=== PATIENT | female | born 1975 | race Caucasian/White ===

== ENCOUNTER → 2024-09-18 12:38 | Outpatient (REF) | payer OTHER, SELFPAY | LOC: WDC 12:38 | PROVIDERS: ATTENDING PHYSICIAN Obstetrics & Gynecology Gynecology; FAMILY PHYSICIAN Nurse Practitioner Family | DX: Z12.31 Encounter for screening mammogram for malignant neoplasm of breast (principal); Z12.39 Encounter for other screening for malignant neoplasm of breast | CPT/HCPCS: 77063; 77067 ==

== ENCOUNTER 2024-10-16 21:38 | Inpatient (IN) | payer OTHER, SELFPAY ==
[2024-10-16 15:47] VITALS: BP 144/93
--- NOTE | 2024-10-16 16:07 | ED.GENMED ---
History of Present Illness
<Araceli Jimenez PA-C - Last Filed: 10/17/24 06:56>
General
Chief Complaint: Chest Pain
Source: patient
Exam Limitations: none
Time Seen by Provider: 10/16/24 15:52
History of Present Illness
History of Present Illness:
49yoF with no significant past medical history presenting for evaluation of flank pain. Symptoms initially started 5 days ago with intense pain in her left shoulder. She was seen by her PCP 3 days ago and had an EKG done in the office. She was
told that she had a 'silent heart attack' and was referred to cardiology and an echocardiogram was ordered. Her shoulder pain resolved. She had some jaw pain with a headache after her appt 3 days ago. Two days ago, she started with pain in her
RLQ. Pain has been gradually starting to migrate to the R flank region. Pain is worse with movement and breathing. She was prescribed a muscle relaxant by her PCP but this has not helped. She denies any chest pain, nausea, vomiting, urinary
symptoms. Her only current medication is an oral contraceptive.
Phy Exam
<Araceli Jimenez PA-C - Last Filed: 10/17/24 06:56>
Physical Exam
Physical Exam:
Appears uncomfortable, non-toxic
General Physical Exam
General Presentation: well appearing
General Skin: warm and dry
General Habitus: normal
General Mental: alert
ENT Exam
ENT Exam: normocephalic
Cardiovascular Exam
Cardiovascular Exam: regular rate/rhythm and normal peripheral pulses (2+ radial and DP pulses bilaterally)
Pulmonary Exam
Pulmonary Exam: lungs clear, no respiratory distress, no rales, no crackles, no rhonchi and no wheezing
Gastrointestinal Exam
Gastrointestinal Exam: soft, non distended and other (+Tenderness in RLQ. Abdomen soft, non-distended. No CVA tenderness. )
Neurological Exam
Neurological Exam: alert
Sage Coma Scale
Eye Opening: Spontaneous
Verbal Response: Oriented
Motor Response: Obeys Commands
GCS Total Score: 15
Skin Exam
Skin Exam: normal color and warm/dry
Psychiatric Exam
Psychiatric Exam: normal mood/affect
<Luther Gil PA-C - Last Filed: 10/16/24 20:06>
Sage Coma Scale
GCS Total Score: 15
Scores
<Araceli Jimenez PA-C - Last Filed: 10/17/24 06:56>
Heart Score for Chest Pain Patients
Heart Score for Chest Pain Patients: 1
Heart Score Risk: 2.5% MACE over next 6 weeks
<Luther Gil PA-C - Last Filed: 10/16/24 20:06>
Heart Score for Chest Pain Patients
STEMI patient?: No
History: Slightly or Non-Suspicious
ECG: Normal
Age: >45 - <65 years
Risk Factors: No Risk Factors
Troponin: </= Normal Limit
Heart Score for Chest Pain Patients: 1
Heart Score Risk: 2.5% MACE over next 6 weeks
Course
<Araceli Jimenez PA-C - Last Filed: 10/17/24 06:56>
Orders/Labs/Results
Orders:
Orders
10/16/24 Dinner
Regular
At Your Request: Full Participation
10/16/24 15:51
Electrocardiogram (*1) Urgent
Reason for Study: Chest Pain
EKG- Treatment ONCE
10/16/24 16:05
Cardiac Monitoring- Treatment ONCE
0.9% Sodium Chloride 1000 ml [Nss] 1,000 ml IV BOLUS
Ketorolac [Toradol] 15 mg IV NOW STA
10/16/24 16:06
Test Result ONCE
10/16/24 16:28
Complete Blood Count/With Diff Urgent
10/16/24 16:58
Comprehensive Metabolic Panel Urgent
D-Dimer Urgent
HCG, Serum Qualitative Screen Urgent
Comment: ADD ON
Lipase Urgent
Troponin I Urgent
10/16/24 17:32
CT Pe/abd/pel W Urgent
Comment:
Reason For Exam: R flank pain, RLQ pain, elevated D-dimer
10/16/24 18:10
CT Head W/o Iv Contrast Urgent
Comment:
Reason For Exam: recurrent headaches
Ketorolac [Toradol] 15 mg IV NOW STA
10/16/24 18:30
Urinalysis Reflex To Culture Urgent
Date Specimen was Collected: 10/16/24
Time Specimen was Collected: 18:28
Urine Microscopic Reflex Cult Urgent
10/16/24 19:52
Heparin 6,800 units IV NOW STA
Nursing to Place Non Medication Order As Directed
Physician Order: PTT 6 hours after initial start of Heparin infusion
Above order entered?: Yes
10/16/24 20:00
Heparin 14340 Units/250 ml 25,000 units in 250 ml IV PER PROTOCOL
Weight to be used for heparin protocol in kilograms (kg):: 85
Protocol:: DVT/PE
PTT Goal Range to be used:: PTT 73 to 111 seconds
Order type:: Initial
INITIAL Infusion Dose (UNITS/KG/hr) & then follow protocol:: 18 units/kg/hr
Infusion Dose in UNITS/hr & then follow protocol (UNITS/hr):: 1,500
INFUSION RATE in mL/hr & then follow protocol (mL/hr):: 15
For DVT/PE algorithm, re-bolus for low PTT?: Yes
PTT less than or equal to 64 seconds:: Re-bolus 80 units/kg (max 10,000units). Increase by 300 units/hr
(+ 3mL/hr)
PTT 64.1 to 72.9 seconds:: Re-bolus 40 units/kg (max 5,000 units). Increase by 200 units/hr
(+ 2mL/hr)
PTT 73 to 111 seconds:: Target Range. No change in rate.
PTT 111.1 to 130.9 seconds:: Decrease rate by 200 units/hr (- 2 mL/hr)
PTT 131 to 199.9 seconds:: HOLD for 1 hr. Then decrease by 300 units/hr (- 3mL/hr)
PTT greater than or equal to 200 seconds:: HOLD for 2 hrs & Notify Provider. Then decrease by 300 units/hr
(- 3mL/hr)
Lab follow-up:: Each change, PTT q6h until 2 consecutive are therapeutic. Then
PTT daily.
10/16/24 20:05
PTT Urgent
Comment: Obtain baseline before beginning heparin infusion if not already collected
10/16/24 20:17
Heparin 6,800 units IV PRN PRN
10/16/24 20:18
Heparin 3,400 units IV PRN PRN
10/16/24 21:31
Admit/Transfer Patient As Directed
Co-Sign Provider:
Level of Care: Inpatient admission
Assign to:: Telemetry
Physician / Group: hospitalist
Diagnosis: Right sided pulmonary embolism
Reason for Telemetry: Other
Other Reason for Telemetry: pulmonary embolism
Date to Stop Telemetry: 10/18/24
Time to Stop Telemetry: 11:00
Reason for Hospitalization: pulmonary embolism
Expected length of stay greater than two midnights?: Yes
ELOS- Estimated Length of Stay in days: 2
I certify the patient meets the requirements for IP care: Yes
PRN Pain Medication Management As Directed
May give lesser potent ordered pain med per pt: Yes
preference::
Protocol:: Medication orders for pain may be administered in a
manner that supports deferring to patient preference
when the pt is:
- Requesting an ordered lesser potent pain medication.
Least to most potent pain medications are defined
as: acetaminophen < NSAID < tramadol < opioids
(morphine, oxycodone, hydromorphone).
- Requesting a lesser dose of the same medication IF
ORDERED.
- Requesting a less intrusive route of administration
if both routes are prescribed by the provider (PO <
IV).
10/16/24 21:33
Code Status As Directed
Resuscitation Status: Full Code
10/16/24 22:00
Flush (0.9% Sodium Chloride) [Flush (Nss)] See Dose Instructions IV PER PROTOCOL
10/16/24 22:33
Acetaminophen [Tylenol] 650 mg PO Q4HPRN PRN
HYDROmorphone [Dilaudid] 0.5 mg IV Q4HPRN PRN
10/16/24 22:33
Activity As Directed
Activity Level: As Tolerated
Bladder Scan As Directed
Follow Bladder Retention/Intermittent Cath Algorithm?: Yes
Frequency: Per Retention Algorithm
Comment: as per intermittent urinary catheter algorithm
Bladder Scan As Directed
Follow Bladder Retention/Intermittent Cath Algorithm?: Yes
PRN if no void in __ hours: 6
Frequency: Per Retention Algorithm
If Bladder Scan Result >: 400
then:: Straight cath
Intake/ Output As Directed
Frequency: Per unit guidelines
Straight Cath As Directed
Frequency: Per Retention Algorithm
Additional Instructions: as per intermittent urinary catheter algorithm
Straight Cath As Directed
Frequency: Per Retention Algorithm
Additional Instructions: straight cath as needed per acute urinary retention algorithm for 24 hrs
Additional Instructions: for bladder scan greater than 400 mL
Vital Signs As Directed
Frequency: Per unit guidelines
Pulse Ox/cont/shift [RESP] Routine
Quantity: 1
Special Instructions: check O2 Sat Q8 hours and at each change in oxygen liter flow and FiO2
Venous Doppler Lwr Ext Bilat [US Periph Venous LOWER Ext Seng] Urgent
Comment:
Reason For Exam: PE, evaluate for DVTs
10/17/24 01:00
Ketorolac [Toradol] 15 mg IV Q8HPRN PRN
10/17/24 04:39
Complete Blood Count/No Diff IN AM
10/18/24 11:00
DC Protocol for Telemetry ONCE
Abnormal Lab Results
10/16/24 10/16/24 10/16/24
16:28 16:58 18:30
RBC 4.16 L 10^6/uL
(4.20-5.40)
Lymphocytes % 19.6 L %
(20.5-51.1)
D-Dimer 5.53 H ug/mlFEU
(0.00-0.50)
Glucose 129 H mg/dl
(70-99)
Total Protein 6.1 L g/dl
(6.3-8.2)
Ur Occult Blood Reflex 2+ A
(Negative)
Urine RBC 3-6 A /HPF
(0-2)
Urine Bacteria (Reflex) Few A
(Negative)
10/16/24 16:28
10/16/24 16:58
Vital Signs
Initial and Last Documented VS:
Initial Vital Signs
Temp Pulse Resp BP Pulse Ox
99.1 F 106 16 144/93 97
10/16/24 15:47 10/16/24 15:47 10/16/24 15:47 10/16/24 15:47 10/16/24 15:47
Last Documented Vital Signs
Temp Pulse Resp BP Pulse Ox
99.4 F 66 19 111/60 96
10/17/24 03:00 10/17/24 03:00 10/17/24 03:00 10/17/24 03:00 10/17/24 03:00
<Luther Gil PA-C - Last Filed: 10/16/24 20:06>
Orders/Labs/Results
Orders:
Orders
10/16/24 Dinner
Regular
At Your Request: Full Participation
10/16/24 15:51
Electrocardiogram (*1) Urgent
Reason for Study: Chest Pain
EKG- Treatment ONCE
10/16/24 16:05
Cardiac Monitoring- Treatment ONCE
0.9% Sodium Chloride 1000 ml [Nss] 1,000 ml IV BOLUS
Ketorolac [Toradol] 15 mg IV NOW STA
10/16/24 16:06
Test Result ONCE
10/16/24 16:28
Complete Blood Count/With Diff Urgent
10/16/24 16:58
Comprehensive Metabolic Panel Urgent
D-Dimer Urgent
HCG, Serum Qualitative Screen Urgent
Comment: ADD ON
Lipase Urgent
Troponin I Urgent
10/16/24 17:32
CT Pe/abd/pel W Urgent
Comment:
Reason For Exam: R flank pain, RLQ pain, elevated D-dimer
10/16/24 18:10
CT Head W/o Iv Contrast Urgent
Comment:
Reason For Exam: recurrent headaches
Ketorolac [Toradol] 15 mg IV NOW STA
10/16/24 18:30
Urinalysis Reflex To Culture Urgent
Date Specimen was Collected: 10/16/24
Time Specimen was Collected: 18:28
Urine Microscopic Reflex Cult Urgent
10/16/24 19:52
Heparin 6,800 units IV NOW STA
Nursing to Place Non Medication Order As Directed
Physician Order: PTT 6 hours after initial start of Heparin infusion
Above order entered?: Yes
10/16/24 20:00
Heparin 26988 Units/250 ml 25,000 units in 250 ml IV PER PROTOCOL
Weight to be used for heparin protocol in kilograms (kg):: 85
Protocol:: DVT/PE
PTT Goal Range to be used:: PTT 73 to 111 seconds
Order type:: Initial
INITIAL Infusion Dose (UNITS/KG/hr) & then follow protocol:: 18 units/kg/hr
Infusion Dose in UNITS/hr & then follow protocol (UNITS/hr):: 1,500
INFUSION RATE in mL/hr & then follow protocol (mL/hr):: 15
For DVT/PE algorithm, re-bolus for low PTT?: Yes
PTT less than or equal to 64 seconds:: Re-bolus 80 units/kg (max 10,000units). Increase by 300 units/hr
(+ 3mL/hr)
PTT 64.1 to 72.9 seconds:: Re-bolus 40 units/kg (max 5,000 units). Increase by 200 units/hr
(+ 2mL/hr)
PTT 73 to 111 seconds:: Target Range. No change in rate.
PTT 111.1 to 130.9 seconds:: Decrease rate by 200 units/hr (- 2 mL/hr)
PTT 131 to 199.9 seconds:: HOLD for 1 hr. Then decrease by 300 units/hr (- 3mL/hr)
PTT greater than or equal to 200 seconds:: HOLD for 2 hrs & Notify Provider. Then decrease by 300 units/hr
(- 3mL/hr)
Lab follow-up:: Each change, PTT q6h until 2 consecutive are therapeutic. Then
PTT daily.
10/16/24 20:05
PTT Urgent
Comment: Obtain baseline before beginning heparin infusion if not already collected
10/16/24 20:17
Heparin 6,800 units IV PRN PRN
10/16/24 20:18
Heparin 3,400 units IV PRN PRN
10/16/24 21:31
Admit/Transfer Patient As Directed
Co-Sign Provider:
Level of Care: Inpatient admission
Assign to:: Telemetry
Physician / Group: hospitalist
Diagnosis: Right sided pulmonary embolism
Reason for Telemetry: Other
Other Reason for Telemetry: pulmonary embolism
Date to Stop Telemetry: 10/18/24
Time to Stop Telemetry: 11:00
Reason for Hospitalization: pulmonary embolism
Expected length of stay greater than two midnights?: Yes
ELOS- Estimated Length of Stay in days: 2
I certify the patient meets the requirements for IP care: Yes
PRN Pain Medication Management As Directed
May give lesser potent ordered pain med per pt: Yes
preference::
Protocol:: Medication orders for pain may be administered in a
manner that supports deferring to patient preference
when the pt is:
- Requesting an ordered lesser potent pain medication.
Least to most potent pain medications are defined
as: acetaminophen < NSAID < tramadol < opioids
(morphine, oxycodone, hydromorphone).
- Requesting a lesser dose of the same medication IF
ORDERED.
- Requesting a less intrusive route of administration
if both routes are prescribed by the provider (PO <
IV).
10/16/24 21:33
Code Status As Directed
Resuscitation Status: Full Code
10/16/24 22:00
Flush (0.9% Sodium Chloride) [Flush (Nss)] See Dose Instructions IV PER PROTOCOL
10/16/24 22:33
Acetaminophen [Tylenol] 650 mg PO Q4HPRN PRN
HYDROmorphone [Dilaudid] 0.5 mg IV Q4HPRN PRN
10/16/24 22:33
Activity As Directed
Activity Level: As Tolerated
Bladder Scan As Directed
Follow Bladder Retention/Intermittent Cath Algorithm?: Yes
Frequency: Per Retention Algorithm
Comment: as per intermittent urinary catheter algorithm
Bladder Scan As Directed
Follow Bladder Retention/Intermittent Cath Algorithm?: Yes
PRN if no void in __ hours: 6
Frequency: Per Retention Algorithm
If Bladder Scan Result >: 400
then:: Straight cath
Intake/ Output As Directed
Frequency: Per unit guidelines
Straight Cath As Directed
Frequency: Per Retention Algorithm
Additional Instructions: as per intermittent urinary catheter algorithm
Straight Cath As Directed
Frequency: Per Retention Algorithm
Additional Instructions: straight cath as needed per acute urinary retention algorithm for 24 hrs
Additional Instructions: for bladder scan greater than 400 mL
Vital Signs As Directed
Frequency: Per unit guidelines
Pulse Ox/cont/shift [RESP] Routine
Quantity: 1
Special Instructions: check O2 Sat Q8 hours and at each change in oxygen liter flow and FiO2
Venous Doppler Lwr Ext Bilat [US Periph Venous LOWER Ext Seng] Urgent
Comment:
Reason For Exam: PE, evaluate for DVTs
10/17/24 01:00
Ketorolac [Toradol] 15 mg IV Q8HPRN PRN
10/17/24 04:39
Complete Blood Count/No Diff IN AM
10/18/24 11:00
DC Protocol for Telemetry ONCE
Abnormal Lab Results
10/16/24 10/16/24 10/16/24
16:28 16:58 18:30
RBC 4.16 L 10^6/uL
(4.20-5.40)
Lymphocytes % 19.6 L %
(20.5-51.1)
D-Dimer 5.53 H ug/mlFEU
(0.00-0.50)
Glucose 129 H mg/dl
(70-99)
Total Protein 6.1 L g/dl
(6.3-8.2)
Ur Occult Blood Reflex 2+ A
(Negative)
Urine RBC 3-6 A /HPF
(0-2)
Urine Bacteria (Reflex) Few A
(Negative)
10/16/24 16:28
10/16/24 16:58
Vital Signs
Initial and Last Documented VS:
Initial Vital Signs
Temp Pulse Resp BP Pulse Ox
99.1 F 106 16 144/93 97
10/16/24 15:47 10/16/24 15:47 10/16/24 15:47 10/16/24 15:47 10/16/24 15:47
Last Documented Vital Signs
Temp Pulse Resp BP Pulse Ox
99.4 F 66 19 111/60 96
10/17/24 03:00 10/17/24 03:00 10/17/24 03:00 10/17/24 03:00 10/17/24 03:00
<Araceli Jimenez PA-C - Last Filed: 10/17/24 06:56>
MDM/Problems Addressed
Differential Diagnosis Includes:
49yoF here with RLQ pain x 2 days that is migrating to the R flank. Worse with movement and breathing. Also had L shoulder pain earlier this week and was told by her PCP that she had a 'silent heart attack.' HR 106 in triage. She is mildly
hypertensive with otherwise normal vitals. No CVA tenderness or signs of peritonitis on abdominal exam. Differential diagnosis includes but is not limited to: Appendicitis, ovarian cyst, kidney stone, pyelonephritis, PE, ACS
Initial ED plan: Check abdominal labs, troponin/EKG, D-dimer, UA, and CT AP vs. CTA CAP depending on D-dimer results. IV Toradol for pain.
Final assessment: Labs reveal elevated D-dimer at 5.5. Remainder of labs unremarkable including normal white count, renal function, and troponin. EKG shows normal sinus rhythm without ischemic changes. Hematuria noted on urinalysis without overt
signs of infection. CTA CAP ordered. CT head also added due to report of recurrent headaches over the past few weeks. Case signed out to Talon Gil PA-C prior to imaging results. Final disposition pending.
<Araceli Jimenez PA-C - Last Filed: 10/17/24 06:56>
*EKG
Interpreted by ED Provider?: Yes
EKG Intrepretation Date: 10/16/24
Heart Rate: 95
Rate: normal
Rhythm: sinus
[place]: normal axis
Interval: normal interval
QRS Pattern: normal QRS
Ischemia: no ischemia
<Luther Gil PA-C - Last Filed: 10/16/24 20:06>
*Critical Care Note
Total Time (30-74mins, 75-104mins- exclusive of procedures): Not Applicable
<Luther Gil PA-C - Last Filed: 10/16/24 20:06>
Update Note
Update Note:
8:06 PM. Assumed care of patient pending CT. CT of chest demonstrates bilateral pulmonary embolism without evidence of right heart strain. Blood pressure is stable. Heparin ordered. Will admit to hospitalist.
ED Attending Note
<Araceli Jimenez PA-C - Last Filed: 10/17/24 06:56>
-
Portions of this chart may have been created with voice recognition software.� Occasional wrong word or��sound alike� substitutions may have occurred due to the inherent limitations of voice recognition software.
Discharge Plan
Departure
Patient Disposition: Admit
Date of Disposition: 10/16/24
Time of Disposition: 20:06
Presentation/result/management discussed w/ accepting MD/DO: Hospitalist
Discharge Problem:
Pulmonary embolism
Interventions
Interventions:
*Risk Screen - Suicide Last Done: 10/16/24 15:51
*General Assessment Last Done: 10/16/24 16:35
*Neglect/Abuse Screening Last Done: 10/16/24 15:51
*ED- Fall Risk Assessment Last Done: 10/16/24 16:35
*ED COVID-19 Vaccine History Last Done: 10/16/24 16:35
*Nursing Disposition Last Done: 10/16/24 22:40
ED- Cardiac Assessment Last Done: 10/16/24 19:39
Discharge Date and Time
Discharge Date/Time: 10/16/24 22:42
[2024-10-16] MEDS: TORADOL 15 MG IV ×2 (16:29→18:25)
[2024-10-16] MEDS: NSS 1000 IV (16:30)
[2024-10-16 16:34] VITALS: BMI 29.4
[2024-10-16 16:40] LABS: % Basophils 0.6 % (0-2); % Eosinophils 2.3 % (0-6); % Immature Granulocytes 0.3 % (0-0.5); % Lymphocytes 19.6 % (20.5-51.1); % Monocytes 4.7 % (1.7-9.3); % Neutrophils 72.5 % (42.2-75.2); Absolute Basophils 0.1 10^3/uL (0-0.2); Absolute Eosinophils 0.2 10^3/uL (0-0.7); Absolute Lymphocytes 1.7 10^3/uL (1.2-3.4); Absolute Monocytes 0.4 10^3/uL (0.1-0.6); Absolute Neutrophils 6.3 10^3/uL (1.4-6.5); Hemoglobin 12.9 g/dL (12.0-16.0); Mean Corp Hgb Conc. 34.9 g/dL (33.0-37.0); Mean Corpuscular Volume 88.9 fL (81.0-99.0); Mean Platelet Volume 9.3 fL (7.4-10.4); Nucleated Red Blood Cells % 0 %; Platelet Count 219 10^3/uL (130-400); Red Blood Cell Count 4.16 10^6/uL (4.20-5.40); Red Cell Dist. Width 12.6 % (11.5-14.5); White Blood Cell Count 8.7 10^3/uL (4.8-10.8)
[2024-10-16 17:20] LABS: ALT (SGPT) 29 U/L (0-35); AST (SGOT) 20 U/L (14-36); Albumin 3.5 g/dl (3.5-5.0); Alkaline Phosphatase 65 U/L (38-126); Blood Urea Nitrogen 11 mg/dl (7-17); Calcium 9.4 mg/dl (8.4-10.2); Carbon Dioxide 24 mmol/L (22-30); Chloride 104 mmol/L (98-107); Estimated Creatinine Clearance 110 ml/min; Glucose 129 mg/dl (70-99); Lipase 105 U/L (23-300); Potassium 4.4 mmol/L (3.5-5.1); Sodium 136 mmol/L (135-145); Total Bilirubin 0.4 mg/dl (0.2-1.3); Total Protein 6.1 g/dl (6.3-8.2); eGFR > 60.00
[2024-10-16 17:30] LABS: D-Dimer 5.53 ug/mlFEU (0.00-0.50)
[2024-10-16 17:31] LABS: Troponin I < 0.012 ng/ml
[2024-10-16 17:51] LABS: HCG, Serum Qualitative Screen Negative
[2024-10-16 18:18] VITALS: BP 115/74
[2024-10-16 18:39] LABS: Urine Albumin Negative (Neg - Trace); Urine Bilirubin Negative (Negative); Urine Color Yellow; Urine Glucose Negative (Negative); Urine Ketone Negative (Negative); Urine Leukocyte Negative (Negative); Urine Nitrite Negative (Negative); Urine Occult Blood 2+ (Negative); Urine Urobilinogen Negative (Neg - 1+)
[2024-10-16 18:46] LABS: Urine Character Clear (Clear)
[2024-10-16 18:56] LABS: Urine Bacteria Few (Negative); Urine White Cell 0-2 /HPF (0-5)
[2024-10-16 19:33] VITALS: BP 120/75
[2024-10-16] MEDS: HEPARIN 6800 UNITS IV (20:23)
[2024-10-16] MEDS: HEPARIN 25000 UNITS/250 ML IV (20:25)
--- NOTE | 2024-10-16 21:20 | HPS.HSE ---
Family Physician
-
Family Physician: JOSÉ ANTONIO Ibrahim
Chief Complaint
-
chest pain
History of Present Illness
This Is a 49-year-old female who denies any significant past medical history presents to the emergency department with chest pain that has been going on for approximately 1 week.
Patient reported that the pain initially started with left-sided shoulder scapular upper back pain. She reports this sharp and stabbing. This resolved after she saw a physician and had an ECG. The pain then came back on the right side located to
the right subcostal region as well as right upper back. She denies any associated nausea vomiting or diaphoresis. She denied exertional chest pain. She does report positional changes with the pain. The pain seems to be improved when she leans
forward because of her back. She denies any coughing. She denies any shortness of breath or dyspnea exertion. She denies any lower extremity swelling calf tenderness.
Patient reported that she had COVID in June. Otherwise she has no recent travel. No significant immobility. She denies any recent trauma. She denies any family history of venous thromboembolism.
She started taking replacement estrogen for perimenopausal symptoms. She is a non-smoker. She denies family history of CAD.
In the emergency department she was afebrile, blood pressure was normal at 120/75 with a pulse of 74 she was satting 100% on room air. She had a temp 100.1. ECG showed normal sinus rhythm at a rate of [address] changes. She did have anterior
leads T wave inversions which was seen previously on outpatient. Troponin was negative. CBC was normal. Electrolytes BUN/creatinine were normal. CT PE shows right-sided central pulmonary embolus involving the interlobar artery and extending into
the right middle and lower lobes. There is segmental/subsegmental pulmonary emboli within the left lower lobe. There is no evidence of right heart strain. Small right and trace left pleural effusion w/ adjacent atelectasis. There was also 4.0 mm
hypodense nodule within the right hemithyroid. Consider nonemergent dedicated thyroid ultrasound for further evaluation. Head CT normal.
Medical History
Past Medical History
Past Medical History: Reports None
Past Surgical History: Reports None
Social History
Tobacco: Non-smoker
Alcohol: Occasional
Drug: None
Employment: Employed
Family History
Family History: Not pertinent
Allergies / Home Medications
Allergies reflects when Allergies were last updated in [facility].
Home Medications with original date entered in [facility]
Allergy/Medication List:
Allergies
Allergy/AdvReac Type Severity Reaction Status Date / Time
No Known Allergies Allergy Unverified 10/16/24 15:51
Review of Systems
-
History Source: Patient
Constitutional: Reports No Symptoms
EENT: Reports No Symptoms
Respiratory: Reports No Symptoms
Cardiac: Reports Chest Pain
Abdomen/GI: Reports No Symptoms
: Reports No Symptoms
Musculoskeletal: Reports No Symptoms
Skin: Reports No Symptoms
Neurological: Reports No Symptoms
Endocrine: Reports No Symptoms
Hematologic/Lymphatic: Reports No Symptoms
Psych: Reports No Symptoms
Physical Exam
Vital Signs
Vital Signs
Temp Pulse Resp BP Pulse Ox
100.1 F 74 18 120/75 98
10/16/24 19:37 10/16/24 19:33 10/16/24 19:37 10/16/24 19:33 10/16/24 19:40
Physical Exam
General: Well Developed, Well Nourished, No Apparent Distress and Comfortable
HEENT: NormoCephalic, Anicteric, Moist mucous membranes and Atraumatic
Respiratory: Clear
Cardiac: S1/S2 and Regular Rhythm
GI: Soft, Non Tender, Non Distended and Normal Bowel Sounds
Rectal: Deferred by Provider
Genito-urinary: Deferred by me
Musculoskeletal: No Clubbing, No Cyanosis and No Edema
Skin: Warm
Neuro: AO x 3 and Nonfocal/grossly intact
Hematologic/Lymphatic: No Lymphadenopathy
Psych: Calm
Laboratory Results
-
10/16/24 16:28
10/16/24 16:58
Laboratory Results
APTT 26.0 Sec (23.4-35.0) 10/16/24 20:05
Total Bilirubin 0.4 mg/dl (0.2-1.3) 10/16/24 16:58
AST 20 U/L (14-36) 10/16/24 16:58
ALT 29 U/L (0-35) 10/16/24 16:58
Alkaline Phosphatase 65 U/L (38-126) 10/16/24 16:58
Troponin I < 0.012 ng/ml 10/16/24 16:58
Lipase 105 U/L (23-300) 10/16/24 16:58
Data Reviewed
-
CT Scan: Report Reviewed by me
Medical Tests (Nuc Med, Echo, EKG etc): Image Personally Visualized and interpreted
Lab Data: Labs Reviewed by me
Impression/Plan
-
IMPRESSION:
49 y.o female with Right sided central pulmonary embolus involving the interlobar artery and extending into the R middle and lower lobes. Significant burden. No heart strain. Troponin is negative. She is hemodynamically stable and not hypoxic.
Likely atelectasis from splinting. No obvious infarct reported on imaging.
PLAN:
Right pulmonary embolism - Not massive or submassive by criteria. No provoking factors clearly identified. She did have COVID in june (unlikely etiology). She is on estrogen replacement but she is a non-smoker.
- admit to telemetry
- started on heparin, will continue until therapeutic and transition to DOAC
- pain control
- check silvia LE u/s
- recommended to stop hormone replacement for now
- hematology consultation
Code status - Full Code
[2024-10-16 22:15] VITALS: BP 121/76
[2024-10-16 22:30] VITALS: BP 123/68; BMI 28.7
[2024-10-16] MEDS: TYLENOL 650 MG PO (22:53)
[2024-10-16] MEDS: DILAUDID 0.5 MG IV (22:53)
[2024-10-16 23:30] VITALS: BP 120/69
[2024-10-17] VITALS (7 sets, daily range): BP systolic 100–123; BP diastolic 57–75
[2024-10-17] MEDS: TORADOL 15 MG IV ×3 (02:39→22:15)
[2024-10-17] MEDS: DILAUDID 0.5 MG IV ×4 (03:00→19:17)
[2024-10-17 03:25] LABS: APTT 65.8 Sec (23.4-35.0)
[2024-10-17] MEDS: HEPARIN 3400 UNITS IV (04:02)
[2024-10-17 05:07] LABS: Hematocrit 34.4 % (37.0-47.0); Hemoglobin 11.8 g/dL (12.0-16.0); Mean Corp Hgb Conc. 34.3 g/dL (33.0-37.0); Mean Corpuscular Volume 90.3 fL (81.0-99.0); Mean Platelet Volume 9.3 fL (7.4-10.4); Platelet Count 206 10^3/uL (130-400); Red Blood Cell Count 3.81 10^6/uL (4.20-5.40); Red Cell Dist. Width 12.8 % (11.5-14.5); White Blood Cell Count 9.1 10^3/uL (4.8-10.8)
--- NOTE | 2024-10-17 07:50 | W.PN.HOSP.TC ---
Today's Communication/Plan
-
see bold
Assessment / Plan
Assessment / Plan
HPI: 49 y.o female with Right sided central pulmonary embolus involving the interlobar artery and extending into the R middle and lower lobes. Significant burden. No heart strain. Troponin is negative. She is hemodynamically stable and not
hypoxic. Likely atelectasis from splinting. No obvious infarct reported on imaging.
Assessment/plan:
#Right-sided pulmonary embolism
#Right pleuritic chest pain
#Fever
Only known risk factor is estrogen replacement therapy
Bilateral lower extremity ultrasound negative for DVT
Currently on IV heparin drip, can transition to subcu Lovenox tonight
Consult case management for pricing of Eliquis
Hematology consult pending
DVT prophylaxis�IV heparin drip as above
Full code
Updated son at bedside 10/17
Total time spent to see the patient on the floor, examine the patient, review data and lab results, discuss treatment plan with patient, nursing staff around 45 minutes.
Physical Exam
General: No acute distress
HEENT: Normocephalic, Atraumatic, EOMI, MMM
Respiratory: Clear to Auscultation bilaterally
Cardiac: Normal S1/S2, Regular Rate and Rhythm
GI: Soft, Nontender, Nondistended, Normal Bowel Sounds
Extremities: No Clubbing, Cyanosis, or Edema
Neuro: Nonfocal/Grossly Intact
Psych: Calm, Cooperative
Derm: No Visible lesions
Anticipated Discharge: Within 24 hours
Subjective/Interval History
-
Date of Service: October 17, 2024
Patient reports continued right-sided pleuritic chest pain, 7 out of 10 in intensity. Has some dyspnea with activity. Also has fever. No nausea, no vomiting.
Objective Data
-
Labs:
Laboratory Results
10/16/24 10/17/24 10/17/24
20:05 03:03 04:39
WBC 9.1
Hgb 11.8 L
Hct 34.4 L
Plt Count 206
APTT 26.0 65.8 H
10/17/24
10:00
WBC
Hgb
Hct
Plt Count
APTT Pending
Vital Signs:
Vital Signs
Temp Pulse Resp BP Pulse Ox
99.4 F 66 19 111/60 96
10/17/24 03:00 10/17/24 03:00 10/17/24 03:00 10/17/24 03:00 10/17/24 03:00
I&O
10/16/24 10/17/24 10/18/24
06:59 06:59 06:59
Intake Total 1240 / 1240
Balance 1240 / 1240
--- NOTE | 2024-10-17 10:42 | CM ---
CM met with pt bedside
Pt resides with her adult son in a 2[facility] with 2STE, full flight to 2nd floor
Pt is indep with her ADLs, no DMEs
As pt now , noted financial difficulties this past year for utilities
Now receives [facility]
[employer] info provided
PCP- Teresa Brown
Rx- [facility] [address]
Discharge Disposition- anticipate home no needs
[2024-10-17] MEDS: LIDOCAINE 4% PATCH 1 PATCH TOPICAL ×2 (10:45→15:13)
[2024-10-17] MEDS: HEPARIN 25000 UNITS/250 ML IV (11:45)
[2024-10-17 11:47] LABS: APTT 76.3 Sec (23.4-35.0)
[2024-10-17] MEDS: TYLENOL 650 MG PO (15:13)
--- NOTE | 2024-10-17 16:46 | CON.ONC ---
Impression
Impression
Pulmonary embolism provoked by exogenous estrogen
Fever, cough
Plan
Plan
Fever and cough likely PE related but would exclude COVID. Testing ordered.
Tesmelindaon Marcel ordered for cough.
PE provoked by OCP's, does not need hypercoagulable workup
Permanently discontinue HRT, should not take any estrogen products in the future.
Thank you for onsult, will follow along with you.
Patient History
History of Present Illness
49 yo woman on HRT, switched to a higher estrogen formulation about 2 months ago. Presents with acute onset L scapular, R subcostal and R upper back pain. CTA chest R PE. Pt was not febrile prior to admission but now with Tm 103.1, pulse ox 94%,
and cough. States trying not to cough due to pain. Denies personal or family history of blood clots. Up to date on mammogram. Denies signs or symptoms of occult malignancy.
Past-Medical/Surgical History
Past Medical History
Reports None
Past Surgical History
Reports None
Social History
Tobacco: Non-smoker
Alcohol: Occasional
Drug: None
Employment: Employed
Family History
Denies family history of venous thromboembolism
Patient Medication
Active Medications
Generic Name Dose Route Start Last Admin
Trade Name Freq PRN Reason Stop Dose Admin
Acetaminophen 650 mg 10/16/24 22:33 10/17/24 15:13
Acetaminophen 325 Mg Tablet PO 11/13/24 22:32 650 mg
Q4HPRN PRN Administration
mild pain/temp > 100.4 F
Enoxaparin Sodium 80 mg 10/17/24 20:00
Enoxaparin Sodium 80 Mg/0.8 Ml Syringe SC 11/14/24 19:59
Q12H MARS
Heparin Sodium 6,800 units 10/16/24 20:17
Heparin 80 Units/Kg Iv Rebolus IV 10/17/24 20:00
PRN PRN
PTT < OR = 64 seconds
Heparin Sodium 3,400 units 10/16/24 20:18 10/17/24 04:02
Heparin 40 Units/Kg Iv Rebolus IV 10/17/24 20:00 3,400 units
PRN PRN Administration
PTT = 64.1 to 72.9 seconds
Hydromorphone HCl 0.5 mg 10/16/24 22:33 10/17/24 15:02
Hydromorphone 0.5 Mg/0.5 Ml Syringe IV 10/30/24 22:32 0.5 mg
Q4HPRN PRN Administration
severe pain
Heparin Sodium 25,000 units in 250 mls @ 0 mls/hr 10/16/24 20:00 10/17/24 11:45
Heparin 46734 Units/250 Ml IV 10/17/24 20:00 250 mls
PER PROTOCOL MARS Administration
Protocol
Per Protocol
Ketorolac Tromethamine 15 mg 10/17/24 01:00 10/17/24 10:50
Ketorolac 15 Mg/Ml Injection IV 10/22/24 00:59 15 mg
Q8HPRN PRN Administration
moderate pain
Lidocaine 1 patch 10/17/24 10:30 10/17/24 10:45
Lidocaine 4% Topical Patch TOPICAL 11/14/24 10:29 1 patch
DAILY MARS Administration
Protocol
Lidocaine 1 patch 10/17/24 15:15 10/17/24 15:13
Lidocaine 4% Topical Patch TOPICAL 11/14/24 15:14 1 patch
DAILY MARS Administration
Protocol
Patch Removal 0 patch 10/17/24 20:00
Remove Lidocaine Patch REMOVE 11/14/24 19:59
DAILY@1999 MARS
Patch Removal 0 patch 10/17/24 20:00
Remove Lidocaine Patch REMOVE 11/14/24 19:59
DAILY@1999 MARS
Sodium Chloride 0 flush 10/16/24 22:00
Sodium Chloride 0.9% (Flush) Syringe IV 11/13/24 21:59
PER PROTOCOL MARS
Review of Systems
-
Negative in detail except as per HPI
Physical Exam
-
Awake alert, appears uncomfortable with movement
Heart RRR
Lungs clear
Abd soft
No edema
Neuro grossly non-focal
Labs
Lab Results
WBC 9.1 10^3/uL (4.8-10.8) 10/17/24 04:39
RBC 3.81 10^6/uL (4.20-5.40) L 10/17/24 04:39
Hgb 11.8 g/dL (12.0-16.0) L 10/17/24 04:39
Hct 34.4 % (37.0-47.0) L 10/17/24 04:39
MCV 90.3 fL (81.0-99.0) 10/17/24 04:39
MCH 31.0 pg (27.0-31.0) 10/17/24 04:39
MCHC 34.3 g/dL (33.0-37.0) 10/17/24 04:39
RDW 12.8 % (11.5-14.5) 10/17/24 04:39
Plt Count 206 10^3/uL (130-400) 10/17/24 04:39
MPV 9.3 fL (7.4-10.4) 10/17/24 04:39
Abs Immat Gran (auto) 0.0 10^3/uL (0-0.05) 10/16/24 16:28
Absolute Neuts (auto) 6.3 10^3/uL (1.4-6.5) 10/16/24 16:28
Absolute Lymphs (auto) 1.7 10^3/uL (1.2-3.4) 10/16/24 16:28
Absolute Monos (auto) 0.4 10^3/uL (0.1-0.6) 10/16/24 16:28
Absolute Eos (auto) 0.2 10^3/uL (0-0.7) 10/16/24 16:28
Absolute Basos (auto) 0.1 10^3/uL (0-0.2) 10/16/24 16:28
Immature Gran % 0.3 % (0-0.5) 10/16/24 16:28
Neutrophils % 72.5 % (42.2-75.2) 10/16/24 16:
Lymphocytes % 19.6 % (20.5-51.1) L 10/16/24 16:28
Monocytes % 4.7 % (1.7-9.3) 10/16/24 16:28
Eosinophils % 2.3 % (0-6) 10/16/24 16:
Basophils % 0.6 % (0-2) 10/16/24 16:28
Creatinine 0.7 mg/dL (0.6-1.0) 10/16/24 16:58
Vital Signs
Vital Signs
Temp Pulse Resp BP Pulse Ox
103.1 F H 92 20 121/75 94
10/17/24 15:36 10/17/24 15:36 10/17/24 15:36 10/17/24 15:36 10/17/24 15:36
[2024-10-17 17:58] LABS: COVID-19 Antigen Negative (Negative)
[2024-10-17 18:01] LABS: APTT 53.4 Sec (23.4-35.0)
[2024-10-17] MEDS: HEPARIN 6800 UNITS IV (18:22)
[2024-10-17] MEDS: LOVENOX 80 MG SC (22:15)
[2024-10-17] MEDS: TESSALON PERLES 200 MG PO (22:19)
[2024-10-18] MEDS: DILAUDID 0.5 MG IV ×3 (03:28→13:17)
[2024-10-18 03:30] VITALS: BP 116/69
[2024-10-18 07:43] VITALS: BP 95/61
[2024-10-18] MEDS: LIDOCAINE 4% PATCH 1 PATCH TOPICAL ×2 (07:49→07:50)
[2024-10-18] MEDS: LOVENOX 80 MG SC (07:50)
[2024-10-18] MEDS: TESSALON PERLES 200 MG PO ×2 (08:04→16:25)
[2024-10-18] MEDS: TYLENOL 650 MG PO (09:30)
--- NOTE | 2024-10-18 09:42 | CM ---
Addendum entered by Lori Yan 10/18/24 11:21:
Pt updated - medication pricing
Reports prob d/c today
Has transport home - daughter
Plan - anticipate home no needs
Original Note:
CM consult - Medication pricing
Called pharmacy provider to obtain med pricing for Eliquis
Spoke with asset protection representative Leeann
30 day supply med cost - $0 co-pay
Per rep would need refill for each additional month supply; insurance wound not cover 90 day supply
[2024-10-18 11:04] VITALS: BP 108/63
[2024-10-18] MEDS: TORADOL 15 MG IV (11:17)
--- NOTE | 2024-10-18 11:48 | W.DS.TRANS ---
DC Summary - C.O.D. Biller
-
Discharge Instructions:
Discharge Diagnosis/Procedures Pulmonary embolism
Diet Regular
Activity As tolerated
Others Tests Thyroid ultrasound to evaluate 4.0 mm hypodense
nodule within the right hemithyroid
Instructions:
Stand-Alone Forms:
Changes to Home Medications: Yes
Discharge Medications:
DC Medications w/original date entered in [employer]
acetaminophen 325 mg tablet 650 mg (2 x 325 mg) PO Q4HPRN PRN mild pain/temp > 100.4 F #60 tabs 10/18/24
apixaban 5 mg tablet (Eliquis) 5 mg PO BID #70 tabs 10/18/24
oxycodone 5 mg tablet 5 mg PO TID PRN Pain #20 tabs 10/18/24
Home Medication Changes
all of above
Pending Results: Yes
Additional Pending Results:
Thyroid function test
[2024-10-18 13:18] LABS: TSH Reflex To Free T4 1.73 uIU/ml (0.47-4.68)
[2024-10-18 15:15] VITALS: BP 102/57
== END 2024-10-18 17:35 | disposition home or self-care (01) | DRG 176 ==
LOC: 2 NORTH 21:38
PROVIDERS: Family Medicine; Physician Assistant; ADMITTING PHYSICIAN Internal Medicine; ATTENDING PHYSICIAN Internal Medicine; EMERGENCY PHYSICIAN Student in an Organized Health Care Education/Training Program; FAMILY PHYSICIAN Nurse Practitioner Family; OTHER PHYSICIAN Internal Medicine Hematology & Oncology
DX: I26.93 Single subsegmental thrombotic pulmonary embolism without acute cor pulmonale (principal); J98.11 Atelectasis; E04.1 Nontoxic single thyroid nodule; Z79.890 Hormone replacement therapy
CPT/HCPCS: 70450; 71275; 74177; 80053; 81003; 81015; 83690; 84443; 84484; 84703; 85025; 85027; 85379; 85730; 87811; 93005; 93970; 96361; 96365; 96366; 96375; 96376; 99285; Q9967

== ENCOUNTER → 2024-11-19 06:57 | Outpatient (REF) | payer OTHER, SELFPAY | LOC: RAD 06:57 | PROVIDERS: ATTENDING PHYSICIAN Nurse Practitioner Family | DX: E04.1 Nontoxic single thyroid nodule (principal) | CPT/HCPCS: 76536 ==

== ENCOUNTER → 2024-11-25 15:48 | Outpatient (REF) | payer OTHER, SELFPAY | LOC: RAD 15:48 | PROVIDERS: ATTENDING PHYSICIAN Nurse Practitioner Family | DX: R07.89 Other chest pain (principal) | CPT/HCPCS: 71046 ==

== ENCOUNTER 2024-12-31 13:26 | Outpatient (RCR) | payer OTHER, SELFPAY | END 2024-12-31 23:59 | disposition home or self-care (01) | LOC: RPT 13:26 | PROVIDERS: ATTENDING PHYSICIAN Nurse Practitioner Family | DX: M51.34 Other intervertebral disc degeneration, thoracic region (principal); M54.2 Cervicalgia; Z73.6 Limitation of activities due to disability | CPT/HCPCS: 97010; 97110; 97112; 97140; 97162 ==

== ENCOUNTER → 2025-01-11 08:13 | Outpatient (REF) | payer OTHER, SELFPAY | LOC: RCS 08:13 | PROVIDERS: ATTENDING PHYSICIAN Internal Medicine; FAMILY PHYSICIAN Nurse Practitioner Family; REFERRING PHYSICIAN Internal Medicine Cardiovascular Disease | DX: R07.2 Precordial pain (principal); R94.31 Abnormal electrocardiogram [ECG] [EKG]; I26.99 Other pulmonary embolism without acute cor pulmonale | CPT/HCPCS: 71275; 93017; 93350; Q9967 ==

== ENCOUNTER 2025-02-03 06:47 | Outpatient (RCR) | payer OTHER, SELFPAY | END 2025-02-03 23:59 | disposition home or self-care (01) | LOC: RPT 06:47 | PROVIDERS: ATTENDING PHYSICIAN Nurse Practitioner Family | DX: M51.34 Other intervertebral disc degeneration, thoracic region (principal); M54.2 Cervicalgia; Z73.6 Limitation of activities due to disability | CPT/HCPCS: 97010; 97110; 97112; 97140 ==

== ENCOUNTER 2025-02-23 17:01 | Outpatient (RCR) | payer OTHER, SELFPAY | END 2025-02-23 23:59 | disposition home or self-care (01) | LOC: RPT 17:01 | PROVIDERS: ATTENDING PHYSICIAN Nurse Practitioner Family | DX: M51.34 Other intervertebral disc degeneration, thoracic region (principal); M54.2 Cervicalgia; Z73.6 Limitation of activities due to disability | CPT/HCPCS: 97010; 97110; 97112; 97140 ==

== ENCOUNTER → 2025-04-15 08:46 | Outpatient (REF) | payer OTHER, SELFPAY | LOC: DHSLP 08:46 | PROVIDERS: ATTENDING PHYSICIAN Internal Medicine; FAMILY PHYSICIAN Nurse Practitioner Family | DX: G47.30 Sleep apnea, unspecified (principal); R06.83 Snoring | CPT/HCPCS: 95810 ==

== ENCOUNTER 2025-06-27 17:38 | Emergency (ER) | payer OTHER, SELFPAY ==
[2025-06-27 17:57] VITALS: BP 124/74
--- NOTE | 2025-06-27 19:07 | ED.GENMED ---
History of Present Illness
General
Chief Complaint: Skin Surface Trauma
Source: patient
Time Seen by Provider: 06/27/25 18:36
History of Present Illness
History of Present Illness:
Note:
CHIEF COMPLAINT(S)
Bleeding from the fingertip.
HISTORY OF PRESENT ILLNESS
The patient is a 50-year-old female presenting with bleeding from the tip of her right first digit. The bleeding started after she shaved off the skin, causing exposure of the capillaries, leading to persistent oozing. The patient reports that
fingertips tend to bleed profusely compared to other types of minor wounds. The sensation noted was described as 'just oozes and oozes.' There is no significant history of recent anticoagulant use, as the patient has been off blood thinners for
several months. No significant pain at the site when applying pressure was noted.
PHYSICAL EXAM
General: Alert, no acute distress.
Skin: Warm, dry.
Head: Normocephalic, atraumatic.
Neck: Supple, trachea midline.
Eye Ears, nose, mouth, and throat: Oral mucosa moist.
Cardiovascular: Normal peripheral perfusion, No edema.
Respiratory: Respirations are non-labored.
Gastrointestinal: Abdomen nondistended
Back: Normal range of motion, Normal alignment.
Musculoskeletal: Normal range of motion, normal strength. Skin avulsion to the right tip of the first digit of the hand. Active bleeding/oozing noted. Normal cap refill.
Neurological: Alert and oriented to person, place, time, and situation, No focal neurological deficit observed.
Psychiatric: Cooperative, appropriate mood & affect.
PROBLEM LIST
Acute:
1. Avulsion of the skin at the right first digit with active bleeding.
PLAN
1. Applied gel foam and compressive dressing to promote coagulation and manage bleeding.
2. Advised the patient to apply direct pressure to the site as needed to control bleeding.
DIFFERENTIAL DIAGNOSIS
The differential diagnosis includes, in no particular order and is not limited to:
1. Avulsion injury
2. Laceration
3. Digital tip crush injury
4. Soft tissue infection
5. Subungual hematoma
6. Digital artery injury
7. Fingertip contusion
8. Broken capillaries
9. Minor necrosis
10. Blood dyscrasia
Disposition:
SUMMARY OF ENCOUNTER
The patient, a 50-year-old female, presented with bleeding from an avulsion injury at the fingertip, sustained from using a mandolin. Bleeding was controlled in the emergency department by applying gel foam and a compressive dressing. The patient is
up-to-date with tetanus vaccination. She appeared well and stable during the encounter.
DISPOSITION
Discharge.
ASSESSMENT
Avulsion injury to the fingertip with active bleeding, controlled with applied dressing.
PLAN
The patient was advised to apply direct pressure as needed and monitor the site for any signs of infection or persistent bleeding. Follow-up care in the outpatient setting was recommended to ensure proper healing and address any emerging concerns.
PATIENT EDUCATION AND COUNSELING
The patient was educated on wound care management, including maintaining clean and dry dressing and monitoring for signs of infection. Emphasis on the importance of applying direct pressure for any recurrent bleeding was given.
FOLLOW-UP INSTRUCTIONS
Advised to follow up with a primary care physician or specialist if bleeding persists, or for any signs of infection, such as increased warmth, redness, or pus.
MEDICAL DECISION MAKING
-Complexity of Data Reviewed: The differential diagnosis for the finger injury included avulsion injury, laceration, and broken capillaries.
DIAGNOSIS
- Avulsion of skin of right first digit, initial encounter (ICD-10: S61.311A)
Phy Exam
Physical Exam
Physical Exam:
.
Course
Orders/Labs/Results
Orders:
Orders
06/27/25 18:51
Tetanus/Diphth/Acelpertussis [Adacel] 0.5 ml IM .ONCE ONE
Vital Signs
Initial and Last Documented VS:
Initial Vital Signs
Temp Pulse Resp BP Pulse Ox
98.4 F 68 16 124/74 98
06/27/25 17:57 06/27/25 17:57 06/27/25 17:57 06/27/25 17:57 06/27/25 17:57
Last Documented Vital Signs
Temp Pulse Resp BP Pulse Ox
98.4 F 68 16 124/74 98
06/27/25 17:57 06/27/25 17:57 06/27/25 17:57 06/27/25 17:57 06/27/25 19:08
*Pulse Oximetry
SaO2: 98
Oxygen Mode of Delivery: Room air
Patient hypoxic: no
*Critical Care Note
Total Time (30-74mins, 75-104mins- exclusive of procedures): Not Applicable
ED Attending Note
-
Portions of this chart may have been created with voice recognition software.� Occasional wrong word or��sound alike� substitutions may have occurred due to the inherent limitations of voice recognition software.
Discharge Plan
Departure
Patient Disposition: Home (Routine Discharge)
Date of Disposition: 06/27/25
Time of Disposition: 19:07
Patient with high blood pressure during this ER visit?: No
Discharge Problem:
Avulsion of skin
Instructions: Wound Care (DC)
Prescriptions:
No Action
acetaminophen 325 mg Tablet
650 mg PO Q4HPRN PRN (Reason: mild pain/temp > 100.4 F) Qty: 60 0RF
Eliquis 5 mg tablet
5 mg PO BID Qty: 70 2RF
Rx Instructions:
take 10 mg BID for 7 days and reduce to 5 mg BID
oxycodone 5 mg tablet
5 mg PO TID PRN (Reason: Pain) Qty: 20 0RF
Referrals:
Teresa Brown CRNP [Family Provider, Family Practice]
Activity Restrictions/Additional Instructions:
Keep wound clean. Use Vaseline on the wound twice a day. Keep wound covered. Change dressings daily. Return immediately for bleeding, redness, drainage or any other concerns
Interventions
Interventions:
*General Assessment Last Done: 06/27/25 17:57
*Neglect/Abuse Screening Last Done: 06/27/25 17:57
*ED COVID-19 Vaccine History Last Done: 06/27/25 17:57
*ED Influenza Vaccine History Last Done: 06/27/25 17:57
*Risk Screen - Suicide (C-SSRS) Last Done: 06/27/25 17:57
*Nursing Disposition Last Done: 06/27/25 19:13
ED-Skin Assessment Last Done: 06/27/25 18:20
Discharge Date and Time
Print Language: GEORGIAN
[2025-06-27] MEDS: ADACEL 0.5 ML IM (19:08)
== END 2025-06-27 19:23 | disposition home or self-care (01) ==
LOC: EMR 17:38
PROVIDERS: EMERGENCY PHYSICIAN Emergency Medicine; FAMILY PHYSICIAN Nurse Practitioner Family
DX: S61.001A Unspecified open wound of right thumb without damage to nail, initial encounter (principal); W27.8XXA Contact with other nonpowered hand tool, initial encounter; Z23 Encounter for immunization
CPT/HCPCS: 90471; 99282; 90715